=== PATIENT | female | born 1955 | race Caucasian/White ===

== ENCOUNTER 2016-06-24 17:59 | Emergency (ER) | payer MEDICARE ==
--- NOTE | ~2016-06-24 | CT16 ---
[facility] A Service of [facility] RADIOLOGY TEXT RESULTS PATIENT: DALLIN GARZA LOCATION: SED : 53 UNIT #: [id number] AGE: [address]: Vinicius Castañeda MD SEX: F ORDER DR: [id number] [address] [id number] MR#: [id number] Acc #: [id number] NAME: DALLIN GARZA : 1955 SEX: F STUDY DATE/TIME: 06/24/2016 18:12 UNIT: SED ROOM: STUDY DESCRIPTION: CT Angio Chest for PE Attending Physician: Vinicius Castañeda M.D. Ordering Physician: Catarino Celestin M.D. Primary Care Physician: Smita Rodriguez A.P.R.N. MEDICAL IMAGING REPORT This report is preliminary unless electronic signature is present. EXAM CT arteriogram of the chest performed on 06/24/2016 HISTORY A 61-year-old female with chest pain. Patient's symptoms started 1 hour ago. Pain extends into the left arm and a history of a PE 2 [address] ago[address] exam was performed with one or more of the following radiation dose reduction techniques: automatic exposure control, adjustment of mA and/or kV according to patient size, and iterative reconstruction. Contiguous 2 mm axial images were obtained through the region of the chest after bolus IV contrast administration. Coronal and sagittal 3-D reconstructions of the pulmonary vasculature were also provided. Lung windows were submitted for evaluation as well. FINDINGS The lungs are symmetrically aerated with no pneumothorax identified. No pleural effusion is appreciated. Granulomatous calcifications are seen within the chest but no consolidation or infiltrate is otherwise identified. Some basilar atelectasis is felt to be present in the dependent portion of the lungs. Heart is not enlarged and no pericardial thickening or fluid is identified. With bolus IV contrast administration no pulmonary arterial filling defects or vascular cutoff is appreciated to suggest an embolus. No mediastinal mass or adenopathy is noted. In the upper abdomen, cholelithiasis is noted. IMPRESSION 1. No evidence of a pulmonary embolus. 2. No acute pulmonary consolidation or infiltrate. 3. Granulomatous calcifications within the chest and spleen. [facility] [place]. [facility] A Service of [facility] RADIOLOGY TEXT RESULTS PATIENT: DALLIN GARZA LOCATION: [facility] [place] : 53 UNIT #: [id number] AGE: [address]: Vinicius Castañeda MD SEX: F ORDER DR: 4. Cholelithiasis. Dictated by... Krystian Haji M.D. THIS IS AN ELECTRONICALLY VERIFIED REPORT Krystian Haji M.D. at 06/25/2016 5:42 PM Debby TD: 06/24/2016 22:51 JOB #: [id number] MEDICAL IMAGING REPORT
--- NOTE | ~2016-06-24 | EKG ---
PATIENT: DALLIN GARZA UNIT #: [id number] Ventricular Rate: 82 BPM Atrial Rate: 82 BPM P-R Interval: 194 ms QRS Duration: 96 ms Q-T Interval: 374 ms QTC Calculation(Bezet): 436 ms P [place]: 66 degrees Calculated R [place]: 61 degrees Calculated T [place]: 74 degrees Diagnosis Line: Normal sinus rhythm Diagnosis Line: Low voltage QRS Diagnosis Line: Cannot rule out Anteroseptal infarct , age Diagnosis Line: undetermined Diagnosis Line: Abnormal ECG Diagnosis Line: When compared with ECG of 24-DEC-2014 10:47, Diagnosis Line: Minimal criteria for Anteroseptal infarct are now Diagnosis Line: Present Diagnosis Line: Confirmed by AMANDA ROCHE MD ([id number]) on Diagnosis Line: 08/08/2016 4:07:05 PM INTERPRETING MD: SYLVAIN
[2016-06-24 17:26] LABS: BASOPHIL% 0.4 % (0-2.5); EOSINOPHIL# 0.4 X10e3 (0-0.7); EOSINOPHIL% 3.7 % (0.0-7.0); HEMATOCRIT 42.4 % (35.0-45.0); HEMOGLOBIN 14.2 gm/dL (12.0-16.0); LYMPHOCYTE# 3.8 X10e3 (1.0-3.5); LYMPHOCYTE% 36.1 % (17.0-45.0); MEAN CELL VOLUME 90.1 FL (83-96); MEAN CORPUSCULAR HEMOGLOBIN 30.2 PG (28-34); MEAN CORPUSCULAR HGB CONC 33.5 g/dL (30-36); MONOCYTE# 0.9 X10e3 (0-1.0); MONOCYTE% 8.9 % (3.0-12.0); NEUTROPHIL# 5.3 X10e3 (1.5-7.1); NEUTROPHIL% 50.9 % (40-75); PLATELET COUNT 319 X10e3 (140-420); RED CELL DISTRIBUTION WIDTH 13.4 % (11.0-15.5); WHITE BLOOD COUNT 10.4 X10e3 (4.0-10.5)
[2016-06-24 17:27] LABS: DIFF IND NO
[2016-06-24 17:36] LABS: POC - CKMB 1.7 ng/mL (0.0-7.9); POC - TROPONIN <0.05 ng/mL (<=0.05)
[2016-06-24 17:38] LABS: INR 1.1
[2016-06-24 17:46] LABS: ALBUMIN SERUM 4.5 g/dL (3.5-5.0); ALKALINE PHOSPHATASE 74 U/L (32-92); ALT (SGPT) 22 U/L (10-40); AST (SGOT) 28 U/L (10-42); BILIRUBIN, DIRECT 0.1 mg/dL (0.0-0.2); BILIRUBIN,INDIRECT 0.4 mg/dL (0.0-0.9); BILIRUBIN,TOTAL 0.5 mg/dL (0.2-2.0); BLOOD UREA NITROGEN 11 mg/dL (9-23); BUN/CREATININE RATIO 13.75; CALCIUM SERUM 10.2 mg/dL (8.4-10.2); CARBON DIOXIDE 28 mmol/L (22-31); CHLORIDE 97 mmol/L (100-111); CREATININE SERUM 0.8 mg/dL (0.6-1.4); GLOM FILT RATE Estimated ABOVE60 mL/min (>60); GLUCOSE FASTING 276 mg/dL (70-110); PARTIAL THROMBOPLASTIN TIME 27.7 SECONDS (25.6-38.1); POTASSIUM 3.3 mmol/L (3.5-5.1); PROTEIN TOTAL SERUM 8.9 g/dL (6.0-8.3); SODIUM 136 mmol/L (135-145)
[~2016-06-24 17:59] MED LIST: AMITRIPTYLINE H50 MG PO; ASPIRIN81 M2 PO; CETIRIZINE HCL10 MG PO; CLARITIN10 M2 PO; COUMADIN5 MG PO; FLONASE 0.05% N16 GM; FLUTICASONE; FOLIC ACID1 MG PO; GLUCOTROL PO; HYDROCHLOROTH12.5 M1 PO; IBUPROFEN800 MG PO; LANTUS100 U/ML SQ; LISINOPRIL10 MG PO; LISINOPRIL20 MG PO; LOMOTIL WHITE2.5 M1 PO; LOVENOX100 MG/ML INJ; MAGIC MOUTHWASH PO; METHOTREXATE PO; METHOTREXATE2.5 MG PO; NOVOLIN R100 UNITS/ SUBQ; NYSTATIN15 GM OINT TOP; OMEPRAZOLE20 M1 PO; OMEPRAZOLE40 M1 PO; PROZAC PO; PROZAC40 M1 PO; PROZAC40 MG PO; ROBAXIN PO; SIMVASTATIN20 MG PO; SYNTHROID PO; TIZANIDINE HCL4 M1 PO; ZESTRIL10 M1 PO; ZYRTEC10 M2 PO
[2016-06-24 19:09] LABS: POC - CKMB 4.7 ng/mL (0.0-7.9); POC - TROPONIN 0.54 ng/mL (<=0.05)
== END 2016-06-24 21:41 ==
LOC: SED 17:59
PROVIDERS: Emergency Medicine
DX: R07.9 Chest pain, unspecified (principal); I10 Essential (primary) hypertension; G43.909 Migraine, unspecified, not intractable, without status migrainosus; Z90.710 Acquired absence of both cervix and uterus; Z79.899 Other long term (current) drug therapy; Z88.0 Allergy status to penicillin; Z88.1 Allergy status to other antibiotic agents
CPT/HCPCS: 71275; 80048; 80076; 82553; 82947; 83874; 84484; 85025; 85610; 85730; 93005; 96374; 99291; J1644; J2270; Q9967